=== PATIENT | female | born 1960 | race Two or more races ===

== ENCOUNTER 2022-11-08 18:45 | Emergency (ER) | payer MEDICAID, OTHER ==
[~2022-11-08] VITALS: Ht 154.9 cm; Wt 84.9 kg
[2022-11-08 18:57] VITALS: BP 151/65
[2022-11-08] MEDS ORDERED: NITROGLYCERIN 0.4 MG SL TAB SL ONE (19:15)
[2022-11-08 19:28] LABS: Basophils # (auto) 0 10 ^3/uL (0-0.2); Eosinophils # (auto) 0 10 ^3/uL (0-0.8); Hemoglobin 15.9 g/dL (12.2-16.2); Monocytes # (auto) 0.4 10 ^3/uL (0-1.3)
[2022-11-08 19:29] LABS: Basophils % (auto) 0.2 % (0.0-2.0); Eosinophils % (auto) 0.5 % (0.0-7.0); Hematocrit 48.5 % (36.0-46.0); Lymphocytes # (auto) 0.5 10 ^3/uL (0.4-5.4); Lymphocytes % (auto) 5.9 % (10.0-50.0); Mean Corpuscular Hgb Conc. 32.8 g/dL (32.0-36.0); Mean Corpuscular Volume 82.4 fL (80.0-100.0); Neutrophils % (auto) 89.4 % (37.0-80.0); Red Blood Cells 5.89 10^6/uL (4.0-5.20); Red Cell Distribution Width 16.2 % (11.8-14.3); White Blood Cell 8.9 10^3/uL (4.4-10.8)
[2022-11-08 19:41] LABS: Albumin 3.6 g/dL (3.4-5.0); Calcium 10.5 mg/dL (8.5-10.1); Magnesium 1.9 mg/dL (1.6-2.6); Potassium 4.1 mmol/L (3.5-5.1)
[2022-11-08 19:45] LABS: Bilirubin, Total 1.5 mg/dL (0.2-1.0); Total Protein 6.5 g/dL (6.4-8.2)
[2022-11-08 22:56] LABS: INR 0.93 (0.9-1.15); Partial Thromboplastin Time 24.8 sec (24.6-33.4)
[2022-11-08] MEDS ORDERED: ONDANSETRON ODT 4 MG TAB PO ONE (23:15)
[2022-11-08] MEDS ORDERED: ACET-1158 PO (23:56)
[2022-11-08] MEDS ORDERED: ONDA-144 PO (23:56)
== END 2022-11-09 00:10 | disposition home or self-care (01) ==
LOC: ER 18:45
DX: R07.89 Other chest pain (principal); A08.4 Viral intestinal infection, unspecified
CPT/HCPCS: 36415; 71046; 80053; 83735; 83880; 84484; 85025; 85610; 85730; 93005; 99285; Q0162